=== PATIENT | male | born 1995 | race Caucasian/White ===

== ENCOUNTER 2017-09-13 01:30 | Emergency (ER) | payer OTHER ==
[~2017-09-13] VITALS: Ht 185.4 cm; Wt 167.8 kg
[2017-09-13 01:33] VITALS: BP 150/65
--- NOTE | 2017-09-13 01:36 | NUR ---
TO BED # 6 AMBULATORY , REPORT GIVEN TO CORINNE SALMON
--- NOTE | 2017-09-13 01:36 | NUR ---
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 PT REPORTS NONPRODUCTIVE COUGH X 2 DAYS. DENIES SOB. ALL LUNG SOUNDS CBTA, 18RR EVEN AND UNLABORED. HR NORMAL. DENIES PMH
[2017-09-13] MEDS ORDERED: KETOROLAC 60 MG/2 ML VIAL IM ONE (01:45)
--- NOTE | 2017-09-13 02:14 | NUR ---
XRAY AT BEDSIDE
[2017-09-13 02:33] VITALS: BP 138/72
== END 2017-09-13 02:20 | disposition home or self-care (01) ==
LOC: MED 01:30
DX: R07.89 Other chest pain (principal); R05 Cough
CPT/HCPCS: 71045; 93005; 96372; 99284; J1885; Q0092

== ENCOUNTER 2017-11-02 18:27 | Emergency (ER) | payer OTHER ==
[~2017-11-02] VITALS: Ht 185.4 cm; Wt 167.8 kg
[2017-11-02 18:36] VITALS: BP 141/60
[2017-11-02] MEDS ORDERED: KETOROLAC 30 MG/ML VIAL IM ONE (19:30)
[2017-11-02] MEDS ORDERED: CYCLOBENZAPRINE 10 MG TAB PO ONE (19:30)
[2017-11-02 20:15] VITALS: BP 140/65
== END 2017-11-02 20:14 | disposition home or self-care (01) ==
LOC: MED 18:27
DX: S39.012A Strain of muscle, fascia and tendon of lower back, initial encounter (principal); E11.9 Type 2 diabetes mellitus without complications; X50.0XXA Overexertion from strenuous movement or load, initial encounter; Y93.89 Activity, other specified; Y92.59 Other trade areas as the place of occurrence of the external cause; Y99.0 Civilian activity done for income or pay
CPT/HCPCS: 81002; 96372; 99283; J1885

== ENCOUNTER 2018-07-25 19:02 | Inpatient (IN) | payer OTHER ==
[~2018-07-25] VITALS: Ht 185.4 cm; Wt 171.0 kg
[2018-07-25 19:09] VITALS: BP 154/111
--- NOTE | 2018-07-25 19:12 | NUR ---
PATIENT AMBULATED BACK TO ER LOBBY, GCS 15, NO ACUTE DISTRESS NOTED.
--- NOTE | 2018-07-25 21:32 | NUR ---
PT TAKEN TO BED 8.
--- NOTE | 2018-07-25 21:35 | NUR ---
PATIENT PRESENTS TO ED WITH EPIGASTRIC PAIN X30 MIN AGO, WHILE AT WORK. PRESSURE LIKE STATES DIFFICULTY BREATHING. TALKING IN FULL COMPLETE SENTENCES, SA02 96%RA. DENIES N/V/D. SKIN IS PINK/WARM/DRY; AAOX4 WITH EVEN AND STEADY GAIT; LUNGS CLEAR BL; HR EVEN AND REGULAR; PT DENIES ANY FEVER, CP, SOB, OR COUGH AT THIS TIME; PATIENT STATES PAIN OF 10/10 AT THIS TIME; VSS; PATIENT POSITIONED FOR COMFORT; HOB ELEVATED; BEDRAILS UP X2; BED DOWN. ER MD MADE AWARE OF PT STATUS.
--- NOTE | 2018-07-25 21:44 | NUR ---
Dr. Lopez evaluating patient at bedside.
[2018-07-25] MEDS ORDERED: DICYCLOMINE HCL LIQUID 20 MG, ALUMINUM HYD/MAG/SIMETHICONE 30 ML, LIDOCAINE VISCOUS 2% ... PO ONE ×3 (21:45)
--- NOTE | 2018-07-25 22:04 | NUR ---
EKG PERFORMED AT BEDSIDE
[2018-07-25 22:48] LABS: ALBUMIN 3.9 g/dL (3.4-5.0); ANION GAP 22.2 (8-16); CARBON DIOXIDE 18.6 mmol/L (21-32); POTASSIUM 3.8 mmol/L (3.5-5.1); TOTAL BILIRUBIN 0.7 mg/dL (0.0-1.0)
--- NOTE | 2018-07-25 23:12 | NUR ---
RT AT BEDSIDE FOR ABG'S
[2018-07-25] MEDS ORDERED: NACL 0.9% 2,000 ML IV ONE (23:20)
--- NOTE | 2018-07-26 00:23 | NUR ---
Ultrasound at bedside.
[2018-07-26] MEDS ORDERED: MORPHINE SULFATE 4 MG/ML SYR IVP ONE (00:30)
[2018-07-26] MEDS ORDERED: ONDANSETRON 4 MG/2 ML VIAL IVP ONE (00:30)
--- NOTE | 2018-07-26 01:10 | NUR ---
PT ADMITTED TO [facility] ROOM 105-B. REPORT GIVEN TO VIKY NASSAR.
--- NOTE | 2018-07-26 01:10 | NUR ---
RECEIVED BEDSIDE REPORT FROM SOFTWARE TRAINER CARLOS ALBERTO. PT IS AAOX4 ON ROOM AIR. RESPIRATIONS ARE EQUAL AND UNLABORED. LUNG SOUNDS CLEAR. IV ON R HAND 20G NS BOLUS INFUSING. PT RECEIVED GI COCKTAIL,MORPHINE AND ZOFRAN IN ER. PT STATES PAIN IS TOLERABLE 2/10. SKIN INTACT HAS 3 INSECT BITE SCAB. PT IS AMBULATORY. VS: 163/105 HR 113 99% ON RA, 97.9 2/10. ORIENTED PT TO ROOM AND STAFF. PLAN OF CARE DISCUSSED. CALL LIGHT WITHIN REACH. WILL CONTINUE TO MONITOR.
[2018-07-26 01:15] VITALS: BP 163/105
--- NOTE | 2018-07-26 01:30 | NUR ---
PAGED DR DIAZ FOR ADMISSION ORDERS. DR FALLON VETERINARIAN.
--- NOTE | 2018-07-26 02:25 | NUR ---
PAGED DR FALLON AGAIN WILL AWAIT FOR CALL BACK.
[2018-07-26] MEDS ORDERED: ONDANSETRON 4 MG/2 ML VIAL IVP PRN (03:15)
--- NOTE | 2018-07-26 04:00 | NUR ---
PATIENT IS SLEEPING COMFORTABLY IN BED. RESPIRATIONS ARE EQUAL AND UNLABORED.
[2018-07-26] MEDS: NACL 0.9% 1,000 ML IV SCH ×2 (04:26→17:01)
--- NOTE | 2018-07-26 05:44 | NUR ---
PATIENTS WITH PMH OF DM2 STATES HE CHECKS BLOOD SUGAR AT HOME "SOMETIMES" BUT DOESN'T TAKE ANY MEDICATION OR INSULIN. PT BLOOD GLUCOSE LEVEL 266 BUT IS NPO IVF NS. WILL NOT ADMINISTER INSULIN AND CONTINUE TO MONITOR.
[2018-07-26] MEDS: BLOOD GLUCOSE MONITORING 1 DEV DEV FS SCH ×4 (05:47→20:16)
--- NOTE | 2018-07-26 07:20 | NUR ---
GAVE BEDSIDE REPORT TO DAY SHIFT RN. PT ENDORSED IN STABLE CONDITION.
--- NOTE | 2018-07-26 07:22 | NUR ---
RECEIVED BEDSIDE REPORT FROM TOOL ENGINE LATHE SET UP OPERATOR NURSE. PATIENT IS AWAKE AND RESTING ON BED AT THIS TIME. PATIENT IS AAOX4. RESPIRATION EVEN AND UNLABORED ON RA. DENIES PAIN AND SOB. NO SIGNS OF DISTRESS NOTED. IV ON R HAND 20G, INTACT AND CLEAN, INFUSING PER MD ORDER. SKIN IS DRY AND INTACT. PATIENT IS CONTINENT AND ABLE TO AMBULATE. DISCUSSED PLAN OF CARE WITH PATIENT AND PATIENT VERBALIZED UNDERSTANDING. BED IN LOW POSITION AND CALL LIGHT WITHIN REACH. INSTRUCTED PATIENT TO USE THE CALL LIGHT FOR ANY ASSISTANCE AND PATIENT WAS AWARE.
--- NOTE | 2018-07-26 07:50 | NUR ---
APPLIED COMPRESSION SOCKS ON PATIENT'S LEGS. EDUCATION PROVIDED AT BEDSIDE AND PATIENT VERBALIZED UNDERSTANDING. BED IN LOW POSITION AND CALL LIGHT WITHIN REACH. INSTRUCTED PATIENT TO USE THE CALL LIGHT FOR ANY ASSISTANCE AND PATIENT WAS AWARE.
[2018-07-26 08:00] VITALS: BP 124/54
--- NOTE | 2018-07-26 08:16 | NUR ---
PATIENT HAS BEEN SCREENED AND CATEGORIZED HIGH NUTRITION RISK. PATIENT WILL BE SEEN WITHIN 1-2 DAYS OF ADMISSION. 07/26/18-07/27/[address]
[2018-07-26] MEDS: MORPHINE SULFATE 2 MG/ML SYR IVP PRN ×2 (10:06→20:08)
--- NOTE | 2018-07-26 10:06 | NUR ---
PATIENT COMPLAINED ABDOMEN PAIN 9/10 AND FEELING RESTLESS. ADMINISTERED PRN MORPHINE PER MD ORDER, PATIENT TOLERATED WELL. PATIENT IS RESTING ON BED AT THIS TIME. NO SIGNS OF DISTRESS NOTED. SAFETY MEASURES IN PLACE. INSTRUCTED PATIENT TO USE THE CALL LIGHT FOR ANY ASSISTANCE AND PATIENT WAS AWARE.
--- NOTE | 2018-07-26 11:20 | NUR ---
PATIENT IS RESTING ON BED AT THIS TIME. DENIES PAIN AND SOB. NO SIGNS OF DISTRESS NOTED. SAFETY MEASURES IN PLACE. SCD IN PLACE. INSTRUCTED PATIENT TO USE THE CALL LIGHT FOR ANY ASSISTANCE AND PATIENT WAS AWARE. BED IN LOW POSITION AND CALL LIGHT WITHIN REACH.
--- NOTE | 2018-07-26 12:08 | NUR ---
ADMINISTERED 4 UNITS OF HUMALOG FOR BLOOD GLUCOSE 235, PATIENT TOLERATED WELL. PATIENT IS RESTING ON BED AT THIS TIME. NO SIGNS OF DISTRESS NOTED. SAFETY MEASURES IN PLACE. BED IN LOW POSITION AND CALL LIGHT WITHIN REACH.
[2018-07-26] MEDS: INSULIN LISPRO SLIDING SCALE 100 UNITS/ML VIAL SUBQ PRN ×3 (12:10→20:18)
--- NOTE | 2018-07-26 13:35 | NUR ---
CALLED OFFICE OF DR PEREYRA [phone] SPOKE TO GREG, FOLLOW-UP APPOINTMENT MADE ON 08/08/18 AT 215PM AT [address], [place], [phone]. APPOINTMENT SCHEDULE GIVEN TO PATIENT, VERBALIZED UNDERSTANDING. VIKY HOLLY MADE AWARE.
--- NOTE | 2018-07-26 13:38 | NUR ---
PATIENT IS RESTING ON BED AT THIS TIME. DENIES PAIN AND SOB. NO SIGNS OF DISTRESS NOTED. SAFETY MEASURES IN PLACE.
--- NOTE | 2018-07-26 14:45 | NUR ---
PATIENT IS TALKING TO MOTHER AND SISTER BY BEDSIDE. NO SIGNS OF DISTRESS NOTED. SAFETY MEASURES IN PLACE.
--- NOTE | 2018-07-26 15:40 | NUR ---
DR GARRETT IS TALKING TO PATIENT AND FAMILY AT BEDSIDE. NO SIGNS OF DISTRESS NOTED. SAFETY MEASURES IN PLACE.
[2018-07-26 16:00] VITALS: BP 127/53
--- NOTE | 2018-07-26 17:07 | NUR ---
PATIENT IS AWAKE AND PLAYING WITH HIS PHONE ON BED. DENIES PAIN AND SOB. NO SIGNS OF DISTRESS NOTED. SAFETY MEASURES IN PLACE.
--- NOTE | 2018-07-26 19:07 | NUR ---
ENDORSED PATIENT AT BEDSIDE TO HEEL ATTACHER NURSE FOR CONTINUITY OF CARE. PATIENT IS IN STABLE CONDITION.
--- NOTE | 2018-07-26 19:08 | NUR ---
RECEIVED PT A, A O X 4, AMBULATORY, W/ NS AT 75 ML/HR R HAND G 20.ASSESSED ABD PAIN, PAIN ABOMEN 8/A0 WILL GIVE THE PAIN MED LATER REQUESTED BY PT. POC REVIEWED; CALL LIGHT W/IN REACH WILL MONITOR PT
[2018-07-26 20:00] VITALS: BP 127/60
--- NOTE | 2018-07-26 20:08 | NUR ---
PAIN MED GIVEN ABD PAIN 10/01 WILL REASSESS LATER
--- NOTE | 2018-07-26 23:05 | NUR ---
PT IN BED PRONE RESTING COMFORTABLY IN A PRONE POSITION.
[2018-07-27 04:00] VITALS: BP 123/60
[2018-07-27] MEDS: MORPHINE SULFATE 2 MG/ML SYR IVP PRN ×4 (04:30→20:54)
[2018-07-27] MEDS: BLOOD GLUCOSE MONITORING 1 DEV DEV FS SCH ×4 (06:15→20:47)
[2018-07-27] MEDS: INSULIN LISPRO SLIDING SCALE 100 UNITS/ML VIAL SUBQ PRN ×4 (06:17→20:50)
[2018-07-27] MEDS: NACL 0.9% 1,000 ML IV SCH ×2 (06:32→18:22)
--- NOTE | 2018-07-27 07:27 | NUR ---
RECEIVED BEDSIDE REPORT FROM GLAZE HANDLER NURSE. PATIENT IS AWAKE AND RESTING ON BED AT THIS TIME. PATIENT IS AAOX4. RESPIRATION EVEN AND UNLABORED ON RA. DENIES PAIN AND SOB. NO SIGNS OF DISTRESS NOTED. IV ON R HAND 20G, INTACT AND CLEAN, INFUSING PER MD ORDER. SKIN IS DRY AND INTACT. PATIENT IS CONTINENT AND ABLE TO AMBULATE. DISCUSSED PLAN OF CARE WITH PATIENT AND PATIENT VERBALIZED UNDERSTANDING. BED IN LOW POSITION AND CALL LIGHT WITHIN REACH. INSTRUCTED PATIENT TO USE THE CALL LIGHT FOR ANY ASSISTANCE AND PATIENT WAS AWARE.
[2018-07-27 07:43] LABS: BASOPHILS % (AUTO) 0.2 % (0.0-2.0); EOSINOPHILS % (AUTO) 0.4 % (0.0-4.0); HEMATOCRIT 44.7 % (36-52); HEMOGLOBIN 15.6 g/dL (12.0-18.0); LYMPHOCYTES # (AUTO) 1.4 K/uL (2.0-11.5); LYMPHOCYTES % (AUTO) 15.1 % (20.5-51.1); MEAN CORPUSCULAR HEMOGLOBIN 30 pg (27-31); MEAN CORPUSCULAR HGB CONC 35 g/dL (33-37); MEAN CORPUSCULAR VOLUME 86.6 fL (80-94); MONOCYTES # (AUTO) 1.1 K/uL (0.8-1.0); MONOCYTES % (AUTO) 11.1 % (1.7-9.3); NEUTROPHILS % (AUTO) 73.2 % (42.2-75.2); PLATELET COUNT (AUTO) 182 K/uL (140-450); RED BLOOD CELL COUNT(AUTO) 5.16 MIL/uL (4.20-6.10); RED CELL DISTRIBUTION WIDTH 13.4 % (11.6-13.7); WHITE BLOOD COUNT (AUTO) 9.6 K/uL (4.8-10.8)
[2018-07-27 08:00] VITALS: BP 118/62
[2018-07-27 08:00] LABS: ANION GAP 15.7 (8-16); POTASSIUM 3.7 mmol/L (3.5-5.1)
[2018-07-27 08:07] LABS: MAGNESIUM 1.8 mg/dL (1.8-2.4); PHOSPHORUS 2.2 mg/dL (2.5-4.9)
[2018-07-27 08:11] LABS: CHOL/HDL RATIO 8.4 (1-4.5)
--- NOTE | 2018-07-27 09:15 | NUR ---
PATIENT IS AWAKE AND WATCHING TV ON BED. DENIES PAIN AND SOB. NO SIGNS OF DISTRESS NOTED. INSTRUCTED PATIENT TO USE THE CALL LIGHT FOR ANY ASSISTANCE AND PATIENT WAS AWARE. BED IN LOW POSITION AND CALL LIGHT WITHIN REACH.
--- NOTE | 2018-07-27 10:10 | NUR ---
PATIENT COMPLAINED 8/10 PAIN ON HIS ABDOMINAL REGION, ADMINISTERED PRN PAIN MED MORPHINE PER MD ORDER. PATIENT TOLERATED WELL. NO SIGNS OF DISTRESS NOTED. SAFETY MEASURES IN PLACE. BED IN LOW POSITION AND CALL LIGHT WITHIN REACH.
--- NOTE | 2018-07-27 11:35 | NUR ---
PATIENT IS RESTING ON BED AT THIS TIME. DENIES PAIN AND SOB. NO SIGNS OF DISTRESS NOTED. SAFETY MEASURES IN PLACE. BED IN LOW POSITION AND CALL LIGHT WITHIN REACH.
--- NOTE | 2018-07-27 13:45 | NUR ---
PATIENT IS TALKING TO VISITOR AT BEDSIDE. NO SIGNS OF DISTRESS NOTED.
--- NOTE | 2018-07-27 15:00 | NUR ---
07/27/18 RD INITIAL ASSESSMENT COMPLETED PLEASE REFER TO NUTRITION ASSESSMENT UNDER CARE ACTIVITY FOR ESTIMATED NUTRITIONAL NEEDS. 1. CONTINUE CLEAR LIQUID DIET TOLERATED 2. RECOMMEND ADVANCING TO SOFT AND LOW FAT DIET ONCE PATIENT IMPROVES 3. RD TO FOLLOW-UP 3-5 DAYS, MODERATE RISK EMIL MCBRIDE, RITA
--- NOTE | 2018-07-27 15:08 | NUR ---
PATIENT COMPLAINED 8/10 PAIN ON HIS ABDOMINAL REGION, ADMINISTERED PRN PAIN MED, PATIENT TOLERATED WELL. SAFETY MEASURES IN PLACE.
[2018-07-27 16:00] VITALS: BP 126/66
--- NOTE | 2018-07-27 17:20 | NUR ---
PATIENT IS AWAKE AND PLAYING WITH HIS PHONE ON BED. DENIES PAIN. NO SIGNS OF DISTRESS NOTED. SAFETY MEASURES IN PLACE.
[2018-07-27] MEDS ORDERED: FENOFIBRATE 48 MG TAB PO SCH (17:30)
--- NOTE | 2018-07-27 19:20 | NUR ---
ENDORSED PATIENT AT BEDSIDE TO DIRECTOR OF PHYSICAL SECURITY NURSE FOR CONTINUITY OF CARE. PATIENT IS IN STABLE CONDITION.
--- NOTE | 2018-07-27 19:21 | NUR ---
RECEIVED BEDSIDE REPORT FROM MOLD SHIFTER NURSE. PATIENT IS A, A, O X 4 , ON BED AT THIS TIME. RESPIRATION EVEN AND UNLABORED ON RA. IV ON R HAND 20G, INTACT AND CLEAN, INFUSING PER MD ORDER. SKIN IS DRY AND INTACT. PATIENT IS CONTINENT AND ABLE TO AMBULATE. DISCUSSED PLAN OF CARE WITH PATIENT AND PATIENT VERBALIZED UNDERSTANDING. BED IN LOW POSITION AND CALL LIGHT WITHIN REACH. CALL LIGHT W/IN EASY REACH
[2018-07-27 20:00] VITALS: BP 124/46
--- NOTE | 2018-07-27 20:55 | NUR ---
PT C/O OF PAIN 10/01 ABD PAIN ADMINISTERED PAIN MED ORDERED
--- NOTE | 2018-07-28 | NUR ---
CHECKED ON PATIENT; TEMP 99.4; PT FELT WARM HE SAID, TOOK OFF BLANKETS
[2018-07-28] MEDS: MORPHINE SULFATE 2 MG/ML SYR IVP PRN (02:02)
--- NOTE | 2018-07-28 02:02 | NUR ---
C/O ABD PAIN 8/10 GIVEN PAIN MED ORDERED
--- NOTE | 2018-07-28 04:00 | NUR ---
CHECKED VITAL SIGNS NOTED THAT PT HAS SLIGHT FEVER 101.5, COLD COMPRESS PLACED X 30 MINS
[2018-07-28] MEDS: NACL 0.9% 1,000 ML IV SCH ×2 (04:38→08:27)
--- NOTE | 2018-07-28 04:55 | NUR ---
PT STILL HAVE LOW GRADE FEVER 101.6 WILL REPORT IN THE AM. NO ACETAMINOPHEN ORDER, BUT HAS NORCO, PT ALSO C/O OF MILD PAIN, WILL GIVE NORCO
[2018-07-28] MEDS: HYDROcodone/APAP 5/325 MG 1 TAB TAB PO PRN ×2 (04:57→11:34)
[2018-07-28] MEDS: BLOOD GLUCOSE MONITORING 1 DEV DEV FS SCH ×3 (05:42→16:43)
[2018-07-28] MEDS: INSULIN LISPRO SLIDING SCALE 100 UNITS/ML VIAL SUBQ PRN ×3 (05:48→16:42)
--- NOTE | 2018-07-28 05:59 | NUR ---
RECHECKED TEMP; 98.5; AFEBRILE. WILL INFORM NEXT SHIFT FOR FURTHER MONITORING
--- NOTE | 2018-07-28 06:59 | NUR ---
PT AWAKE, ALERT O, X , AMBULATORY, PT FOR MONITORING OF FEVER. AT THIS TIME, PT IN STABLE CONDITION
--- NOTE | 2018-07-28 07:15 | NUR ---
RECEIVED ENDORSEMENT FROM FACING MACHINE OPERATOR NURSE. PATIENT IS AAOX4, CITIZEN OF [place] SPEAKING. RESPIRATIONS ARE EVEN AND UNLABORED ON ROOM AIR. RIGHT HAND 20 G INTACT, PATENT, AND INFUSING IVF. PATIENT DENIES ANY PAIN AT THIS TIME. PLAN OF CARE WAS REVIEWED WITH PATIENT. PATIENT VERBALIZED UNDERSTANDING. SAFETY MEASURES IN PLACE, CALL LIGHT WITHIN REACH.
[2018-07-28 07:43] LABS: BASOPHILS % (AUTO) 0.4 % (0.0-2.0); EOSINOPHILS # (AUTO) 0.1 K/uL (0-0.4); EOSINOPHILS % (AUTO) 0.9 % (0.0-4.0); HEMATOCRIT 41.7 % (36-52); HEMOGLOBIN 14.3 g/dL (12.0-18.0); LYMPHOCYTES # (AUTO) 1.4 K/uL (2.0-11.5); MEAN CORPUSCULAR HEMOGLOBIN 30 pg (27-31); MEAN CORPUSCULAR HGB CONC 34 g/dL (33-37); MONOCYTES # (AUTO) 1.2 K/uL (0.8-1.0); MONOCYTES % (AUTO) 12.4 % (1.7-9.3); NEUTROPHILS # (AUTO) 6.7 K/uL (1.8-7.7); NEUTROPHILS % (AUTO) 71.3 % (42.2-75.2); PLATELET COUNT (AUTO) 173 K/uL (140-450); RED BLOOD CELL COUNT(AUTO) 4.74 MIL/uL (4.20-6.10); RED CELL DISTRIBUTION WIDTH 13.2 % (11.6-13.7); WHITE BLOOD COUNT (AUTO) 9.4 K/uL (4.8-10.8)
[2018-07-28 08:00] VITALS: BP 125/78
[2018-07-28 08:19] LABS: MAGNESIUM 1.7 mg/dL (1.8-2.4); PHOSPHORUS 2.1 mg/dL (2.5-4.9)
[2018-07-28 08:29] LABS: ANION GAP 13.9 (8-16); POTASSIUM 3.9 mmol/L (3.5-5.1)
--- NOTE | 2018-07-28 08:45 | NUR ---
ADMINISTERED SCHEDULED MEDICATIONS. PATIENT DENIES ANY PAIN AT THIS TIME. NO OTHER NEEDS AT THIS TIME.
[2018-07-28] MEDS ORDERED: FENOFIBRATE 48 MG TAB PO SCH (09:00)
--- NOTE | 2018-07-28 10:05 | NUR ---
PATIENT RESTING IN BED. DENIES PAIN. NO OTHER NEEDS AT THIS TIME.
--- NOTE | 2018-07-28 11:45 | NUR ---
PATIENT C/O 08/01 PAIN. ADMINISTERED PRN NORCO. ADMINISTERED SCHEDULED MEDICATIONS. WILL CONTINUE TO MONITOR. NO OTHER NEEDS AT THIS TIME Addendum: 07/28/18 at 1452 by Rukhsana Valverde RN FRIEND PRESENT AT THE BEDSIDE.
--- NOTE | 2018-07-28 13:48 | NUR ---
CALLED OFFICE OF DR Dana WHITAKER, , SPOKE TO MICHAEL, FOLLOW-UP APPOINTMENT MADE ON 08/09/18 AT 345PM AT [address], [place] [id number]. COPY OF FOLLOW-UP APPOINTMENT GIVEN TO PATIENT AND INSTRUCTED PATIENT TO BRING DISCHARGE PAPERS DURING VISIT. PATIENT VERBALIZED UNDERSTANDING. VIKY CARRASCO NOTIFIED.
--- NOTE | 2018-07-28 14:46 | NUR ---
PATIENT RESTING IN BED. DENIES PAIN AT THIS TIME. NO OTHER NEEDS AT THIS TIME.
[2018-07-28] MEDS ORDERED: FENO145T PO (15:13)
[2018-07-28] MEDS ORDERED: ONDA4TAB PO (15:17)
[2018-07-28] MEDS ORDERED: TYL3 PO (15:17)
[2018-07-28] MEDS ORDERED: METF500T PO (15:27)
[2018-07-28] MEDS ORDERED: MAGNESIUM OXIDE 400 MG TAB PO SCH (15:30)
[2018-07-28 16:00] VITALS: BP 123/64
--- NOTE | 2018-07-28 16:14 | NUR ---
PATIENT RESTING IN BED. DENIES PAIN AT THIS TIME. NO OTHER NEEDS AT THIS TIME.
--- NOTE | 2018-07-28 18:15 | NUR ---
PATIENT AMBULATED OFF UNIT WITH STEADY GAIT. ALL BELONGINGS LEFT WITH PATIENT. PATIENT IS STABLE AT THIS TIME.
--- NOTE | 2018-07-28 18:15 | NUR ---
GAVE DISCHARGE INSTRUCTIONS TO PATIENT ON MEDICATIONS, AND FOLLOW UP. PATIENT VERBALIZED UNDERSTANDING. ANSWERED ALL QUESTIONS AND CONCERNS. REMOVED IV, CANNULA WAS INTACT, WITH MINIMAL BLEEDING. REMOVED ID BANDS. PATIENT IS STABLE AT THIS TIME.
== END 2018-07-28 18:15 | disposition home or self-care (01) | DRG 282 ==
LOC: MED 19:02 → MTU 07-26 00:49
PROVIDERS: ADMIT Internal Medicine Pulmonary Disease; ATTEND Internal Medicine Pulmonary Disease
DX: K85.90 Acute pancreatitis without necrosis or infection, unspecified (principal); Z68.42 Body mass index [BMI] 45.0-49.9, adult; E11.9 Type 2 diabetes mellitus without complications; E66.9 Obesity, unspecified; E78.5 Hyperlipidemia, unspecified; E86.9 Volume depletion, unspecified; E78.1 Pure hyperglyceridemia; Z91.14 Patient's other noncompliance with medication regimen
CPT/HCPCS: 36415; 36600; 71045; 76705; 80048; 80053; 82803; 82948; 83036; 83690; 83735; 84100; 85025; 87081; 93005; 96361; 96374; 96375; 99285; G0482; J1815; J2270; J2405; J7030; Q0092